=== PATIENT | female | born 1945 | race Caucasian/White ===

== ENCOUNTER 2022-05-24 16:38 | Emergency (ER) | payer OTHER ==
--- OUTSIDE RECORDS SUMMARY | 2022-05-24 16:40 | XMS REPORT | Continuity of Care Document ---
:1945 Author Organization [facility] t Address [address] [place] [address] Care Team Providers Name Role Phone Radha Ann Attending Clinician Unavailable Problems This patient has no known problems. Allergies, Adverse Reactions, Alerts Allergy Allergy Status Severity Reaction(s) Onset Inactive Treating Comm ents Source Name Type Date Date Clinician LISINOPR Adverse Active Info Not Commo n [place] [facility] Ordered Filled Start Stop Current Ordering Indication Dosage Frequency Signature Comments Components Source Medication Medication Date Date Medication? Clinician (SIG) Name Name Potassium Potassium Yes Raul 1 capsule Common Chloride Chloride García with food S pirit [facility] Singulair Singulair Yes Raul 1 tablet Common García in the [facility] evening [facility] Lexapro Lexapro Yes Raul 1 tablet Com mon García [facility] Lipitor Lipitor Yes Raul 1 tablet Com mon García [facility] Flonase Flonase Yes Raul 2 spray in C ommon García each [facility] nostril [facility] Ventolin Ventolin Yes Raul 2 puffs as Common HFA HFA García needed [facility] Norvasc Norvasc Yes Raul 1 tablet Com mon García [facility] Prolia Prolia 2018- No Raul as Common 03-12 García directed Spirit 00:00 - [facility] :00 [facility] Immunizations Ordered Immunization Filled Immunization Date Status Commen ts Source Name Name FluAD FluAD 2019-09-13 Completed Common [facility] 00:00:00 [facility] Procedures This patient has no known procedures. Encounters Start End Encounter Admission Attending Care Care Encounter Source Date/Time Date/Time Type Type Clinicians Facility Department ID 2021-12-25 Outpatient Ann, Na STLMLC STLMLC [id number] 2 Common 14:34:31 [facility] 2021-12-25 Outpatient Ann, Na STLMLC STLMLC [id number] 2 Common 14:13:23 [facility] 2021-12-25 Outpatient Ann, Na STLMLC STLMLC [id number] 2 Common 14:12:30 [id number] [facility] 2021-12-25 Outpatient Ann, Na STLMLC STLMLC [id number] 2 Common 13:58:52 [id number] [facility] 2021-12-25 Outpatient Ann, Na STLMLC STLMLC [id number] 2 Common 13:48:25 [id number] [facility] 2021-12-25 Outpatient Ann, Na STLMLC STLMLC [id number] 2 Common 13:43:09 [id number] [facility] 2021-12-25 Outpatient Ann, Na STLMLC STLMLC [id number] 2 Common 13:24:05 [id number] [facility] 2021-12-25 Outpatient Ann, Na STLMLC STLMLC [id number] 2 Common 13:01:57 [id number] [facility] 2021-12-25 Outpatient Ann, Na STLMLC STLMLC [id number] 2 Common 12:49:54 [id number] [facility] 2021-12-25 Outpatient Ann, Na STLMLC STLMLC [id number] 2 Common 12:19:51 [id number] [facility] 2021-12-25 Outpatient Ann, Na STLMLC STLMLC [id number] 2 Common 11:54:36 [id number] [facility] 2021-12-25 Outpatient Ann, Na STLMLC STLMLC [id number] 2 Common 11:54:19 [id number] [facility] 2021-12-25 Outpatient Ann, Na STLMLC STLMLC [id number] 2 Common 11:31:00 [id number] [facility] 2021-12-25 Outpatient Ann, Na STLMLC STLMLC [id number] 2 Common 11:30:22 [id number] [facility] 2021-12-25 Outpatient Ann, Na STLMLC STLMLC [id number] 2 Common 11:17:41 [id number] [facility] 2021-12-25 Outpatient Ann, Na STLMLC STLMLC [id number] 2 Common 11:17:09 [id number] [facility] 2022-03-20 2022-03-20 ambulatory STLMLC STLMLC [id number] Common 00:00:00 00:00:00 [facility] 2022-03-20 2022-03-20 ambulatory STLMLC STLMLC [id number] Common 00:00:00 00:00:00 [facility] 2022-02-17 2022-02-17 ambulatory STLMLC STLMLC [id number] Common 00:00:00 00:00:00 [facility] 2021-12-13 2021-12-13 ambulatory STLMLC STLMLC [id number] Common 00:00:00 00:00:00 [facility] 2021-10-11 2021-10-11 ambulatory STLMLC STLMLC [id number] Common 00:00:00 00:00:00 [facility] 2021-10-11 2021-10-11 ambulatory STLMLC STLMLC [id number] Common 00:00:00 00:00:00 [facility] 2021-09-19 2021-09-19 ambulatory STLMLC STLMLC [id number] Common 00:00:00 00:00:00 [facility] 2021-09-10 2021-09-10 Outpatient STLMLC STLMLC [id number] Common 00:00:00 00:00:00 [facility] 2021-07-292021-07-29 Outpatient STLMLC STLMLC [id number] Common 00:00:00 00:00:00 [facility] 2021-07-22 2021-07-22 Outpatient STLMLC STLMLC [id number] Common 00:00:00 00:00:00 [facility] 2021-06-10 2021-06-10 Outpatient STLMLC STLMLC [id number] Common 00:00:00 00:00:00 [facility] 2021-05-08 2021-05-08 Outpatient STLMLC STLMLC [id number] Common 00:00:00 00:00:00 [facility] 2021-04-10 2021-04-10 Outpatient STLMLC STLMLC [id number] Common 00:00:00 00:00:00 [facility] 2021-04-10 2021-04-10 Outpatient STLMLC STLMLC [id number] Common 00:00:00 00:00:00 [facility] 2021-03-11 2021-03-11 Outpatient STLMLC STLMLC [id number] Common 00:00:00 00:00:00 [facility] 2020-12-11 2020-12-11 Outpatient STLMLC STLMLC [id number] Common 00:00:00 00:00:00 [facility] 2020-09-11 2020-09-11 Outpatient STLMLC STLMLC [id number] Common 00:00:00 00:00:00 [facility] 2020-08-21 2020-08-21 Outpatient STLMLC STLMLC [id number] Common 00:00:00 00:00:00 [facility] 2020-07-12 2020-07-12 [id number] Common 09:00:00 09:00:00 [employer] [address] [facility] 2020-06-13 2020-06-13 [facility] [id number] Common 11:00:00 11:00:00 [employer] [address] [facility] 2020-06-05 2020-06-05 [facility] [id number] Common 08:30:00 08:30:[address] [facility] 2020-06-04 2020-06-04 [facility] [id number] Common 16:52:00 16:52:[address] [facility] 2020-03-14 2020-03-14 [facility] [id number] Common 08:20:00 08:20:[address] [facility] 2020-03-05 2020-03-05 [facility] [id number] Common 17:01:00 17:01:[address] [facility] 2020-01-25 2020-01-25 [facility] [id number] Common 14:10:00 14:10:[address] [facility] 2019-12-14 2019-12-14 [facility] [id number] Common 10:00:00 10:00:[address] [facility] 2019-12-06 2019-12-06 [facility] [id number] Common 16:58:00 16:58:[address] [facility] 2019-09-13 2019-09-13 [facility] [id number] Common 09:20:00 09:20:[address] [facility] 2019-06-10 2019-06-10 [facility] [id number] Common 09:40:00 09:40:[address] [facility] 2019-03-10 2019-03-10 [facility] [id number] Common 09:00:00 09:00:[address] [facility] 2019-01-05 2019-01-05 [facility] [id number] Common 15:01:00 15:01:00 [address] [employer] [address] [facility] 2018-12-09 2018-12-09 Outpatient Sylvia Wardt [id number] Common 08:45:00 08:45:00 [address] [employer] [address] [facility] Results This patient has no known results.
[2022-05-24 17:20] LABS: Urine Blood Trace-intact (Negative); Urine Glucose Negative (Negative); Urine Protein 1+ (Negative); Urine Specific Gravity >=1.030 (1.005-1.030)
[2022-05-24 17:21] LABS: Absolute Lymphocytes (CBC) 1.9 K/uL (0.7-4.9); Hematocrit 39.6 % (36.0-45.0); Lymphocytes % 30.4 % (15.3-44.8); MPV 7.5 fL (7.6-11.3); RBC Red Blood Cell Count 4.15 M/uL (3.86-4.86)
[2022-05-24] MEDS ORDERED: NA CHLORIDE 0.9% 1,000 ML ONE (17:24)
[2022-05-24] MEDS ORDERED: ONDANSETRON 4 MG/2 ML VIAL ONE (17:24)
[2022-05-24] MEDS ORDERED: MORPHINE 4 MG/ML SYR ONE (17:24)
[2022-05-24 17:55] LABS: Urine Bacteria <20 /HPF (<20); Urine RBC <5 /HPF (NONE SEEN)
[2022-05-24 18:10] LABS: Albumin 3.8 g/dL (3.4-5.0); Bilirubin Total 0.8 mg/dL (0.2-1.0); Protein, Total 7.3 g/dL (6.4-8.2)
[2022-05-24 18:13] LABS: Potassium 2.9 mmol/L (3.5-5.1)
--- NOTE | 2022-05-24 18:43 | RAD REPORT ---
EXAM DESCRIPTION: CTAbdomen Pelvis W Contrast - 05/24/2022 6:29 pm CLINICAL HISTORY: RLQ pain COMPARISON: No comparisons TECHNIQUE: CT of the abdomen and pelvis was performed with IV contrast. All CT scans are performed using dose optimization technique as appropriate and may include automated exposure control or mA/KV adjustment according to patient size. FINDINGS: Lower chest: Moderate hiatal hernia. There is likely a slipped fundoplication . Unchanged 14 mm pleural based nodule in the medial aspect of the left lower lobe. Liver: Intra hepatic biliary ductal dilatation. Subcentimeter low-density liver lesions are statistic ally benign. Biliary: Cholecystectomy. Extrahepatic biliary duct dilatation is likely related to the postcholecyst ectomy state. Stomach: No significant focal abnormality. Duodenum: No significant focal abnormality. Pancreas: No significant abnormality. Spleen: No significant abnormality. Adrenal: No suspicious lesions. Kidney/ureter: No hydronephrosis. No renal calculi. Retroperitoneum: No retroperitoneal adenopathy. Vascular: No aneurysm. Bowel: No significant focal abnormality. Diverticulosis. No evidence of acute diverticulitis. No appe ndix identified. No secondary signs of acute appendicitis. Peritoneum: No ascites or free air. Right inguinal hernia repair. Bladder: Grossly unremarkable. Reproductive: No adnexal masses. Bones: Remote appearing T12 compression fracture with approximately 60% loss of height anteriorly. No significant bony retropulsion. Probable hemangioma in T11. Other: n/a IMPRESSION: No acute intra-abdominal or pelvic finding. Incidental findings as noted above.
--- NOTE | 2022-05-24 19:12 | ER ---
Nurse's Notes [facility] Name: Fior Penn Age: 76 yrs Sex: Female : 1945 Arrival Date: 05/24/2022 Time: 16:41 Bed 19 Private MD: Cat Ann Diagnosis: Abdominal pain, unspecified;Constipation Presentation: 05/24 16:43 Chief complaint: Patient states: Last night I began vomiting. RLQ pain. Constipation X ld1 3 weeks on and off. Coronavirus screen: At this time, the client does not indicate any symptoms associated with coronavirus-19. Ebola Screen: No symptoms or risks identified at this time. Initial Sepsis Screen: Does the patient meet any 2 criteria? No. Patient's initial sepsis screen is negative. Does the patient have a suspected source of infection? No. Patient's initial sepsis screen is negative. Risk Assessment: Do you want to hurt yourself or someone else? Patient reports no desire to harm self or others. Onset of symptoms was May 24, 2022. 16:43 Method Of Arrival: Ambulatory ld1 16:43 Acuity: ANTOINETTE 3 ld1 Triage Assessment: 16:46 General: Appears in no apparent distress. comfortable, Behavior is calm, cooperative, ld1 appropriate for age. Pain: Complains of pain in right lower quadrant Pain does not radiate. Pain currently is 8 out of 10 on a pain scale. Quality of pain is described as throbbing. EENT: No signs and/or symptoms were reported regarding the EENT system. Neuro: Level of Consciousness is awake, alert, obeys commands, Oriented to person, place, time, situation. Cardiovascular: Capillary refill < 3 seconds Patient's skin is warm and dry. Respiratory: Airway is patent Respiratory effort is. GI: Abdomen is round non-distended, Reports lower abdominal pain, constipation, nausea, vomiting. : No signs and/or symptoms were reported regarding the genitourinary system. Derm: No signs and/or symptoms reported regarding the dermatologic system. Musculoskeletal: No signs and/or symptoms reported regarding the musculoskeletal system. Historical: - Allergies: 16:45 Bactrim; ld1 - Home Meds: 16:45 amlodipine 2.5 mg tab 1 tab once daily [Active]; atorvastatin 10 mg oral tab 1 tab once ld1 daily [Active]; escitalopram oxalate 20 mg oral tab 1 tab once daily [Active]; - PMHx: 16:45 Hypertensive disorder; Hypercholesterolemia; ld1 - PSHx: 16:46 Cholecystectomy; ld1 - Immunization history:: Adult Immunizations up to date, Client reports receiving the 2nd dose of the Covid vaccine. - Social history:: Smoking status: Patient/guardian denies using tobacco, the patient reports quitting approximately 20 years ago, Patient/guardian denies using alcohol. Screenin:36 Abuse screen: Denies threats or abuse. Denies injuries from another. Nutritional ww screening: No deficits noted. Tuberculosis screening: No symptoms or risk factors identified. Fall Risk None identified. Assessment: 17:05 General: Appears in no apparent distress. comfortable, Behavior is calm, cooperative. ww Pain: Complains of pain in abdomen. Neuro: Level of Consciousness is awake, alert, obeys commands, Oriented to person, place, time, situation, Moves all extremities. Speech is normal. Cardiovascular: Capillary refill < 3 seconds Patient's skin is warm and dry. Chest pain is denied. Respiratory: Airway is patent Respiratory effort is even, unlabored, Respiratory pattern is regular, symmetrical. GI: Abdomen is round Reports lower abdominal pain, upper abdominal pain, constipation, nausea, vomiting. Derm: No signs and/or symptoms reported regarding the dermatologic system. Musculoskeletal: No signs and/or symptoms reported regarding the musculoskeletal system. 18:36 Reassessment: Patient appears in no apparent distress at this time. No changes from ww previously documented assessment. Patient and/or family updated on plan of care and expected duration. Pain level reassessed. Patient is alert, oriented x 3, equal unlabored respirations, skin warm/dry/pink. 19:34 Reassessment: No changes from previously documented assessment. Patient and/or family ll3 updated on plan of care and expected duration. Pain level reassessed. Patient is alert, oriented x 3, equal unlabored respirations, skin warm/dry/pink. Vital Signs: 16:43 Pulse 89; Resp 18; Temp 98.4(TE); Pulse Ox 98% on R/A; Weight 77.11 kg; Height 5 ft. 0 ld1 in. (152.40 cm); Pain 6/10; 17:15 BP 164 / 81; Pulse 65; Resp 18; Pulse Ox 96% ; ww 18:37 BP 165 / 84; Pulse 78; Resp 16; Pulse Ox 97% ; ww 19:34 BP 148 / 74; Pulse 67; Resp 17; Pulse Ox 96% on R/A; ll3 16:43 Body Mass Index 33.20 (77.11 kg, 152.40 cm) ld1 ED Course: 16:41 Patient arrived in ED. am2 16:41 Cat Ann MD is Private Physician. am2 16:43 [facility] j[facility] 16:43 Andrea Velazquez MD is Attending Physician. 7 16:45 Triage completed. ld1 16:46 Arm band placed on right wrist. ld1 17:06 Leida Sharif RN is Primary Nurse. ww 17:09 Initial lab(s) drawn, by wv, sent to lab. Inserted saline lock: 20 gauge in right dh3 antecubital area, using aseptic technique. Blood collected. 17:20 Urine collected: clean catch specimen, clear. dh3 18:30 Abdomen In Process Unspecified. EDMS 18:37 Patient has correct armband on for positive identification. Bed in low position. Call ww light in reach. Side rails up X 1. Pulse ox on. NIBP on. 19:11 Cat Ann MD is Referral Physician. [facility] 19:14 Primary Nurse role handed off by Leida Sharif, RN mw2 19:33 No provider procedures requiring assistance completed. IV discontinued, intact, ll3 bleeding controlled, No redness/swelling at site. Pressure dressing applied. Administered Medications: 17:20 Drug: NS 0.9% 1000 ml Route: IV; Rate: 1 bolus; Site: right antecubital; ww 17:21 Drug: morphine 4 mg Route: IVP; Infused Over: 4 mins; Site: right antecubital; ww 17:27 Drug: Zofran (Ondansetron) 4 mg Route: IVP; Site: right antecubital; ww 19:28 Drug: Potassium Effervescent Tablet 50 mEq Route: PO; 3 19:33 Follow up: Response: Medication administered at discharge. ll3 Medication: 19:33 VIS not applicable for this client. ll3 Outcome: 19:12 Discharge ordered by . [facility] 19:33 Discharged to home ambulatory, with family. 3 19:33 Condition: stable 19:33 Discharge instructions given to patient, family, Instructed on discharge instructions, follow up and referral plans. medication usage, Demonstrated understanding of instructions, follow-up care, medications, Prescriptions given X 1. 19:34 Patient left the ED. ll3 Signatures: Dispatcher [employer] EDMS Allie Sharma 2 Demetria Powell 3 Federico Orlando 2 Yuliet Donovan RN RN ld1 Verónica Aponte RN RN ll3 Leida Sharif RN RN Calli Sin FNP SETTER HELPER 7 Corrections: (The following items were deleted from the chart) 16:48 16:43 Chief complaint: Patient states: Last night I began vomiting. RLQ pain. ld1 ld1
--- NOTE | 2022-05-24 19:13 | EDPHYS ---
Physician Documentation [facility] Name: Fior Penn Age: 76 yrs Sex: Female : 1945 Arrival Date: 05/24/2022 Time: 16:41 Bed 19 Private MD: Cat Ann ED Physician Andrea Velazquez HPI: 05/24 16:50 This 76 yrs old Female presents to ER via Ambulatory with complaints of Abdominal Pain jh7 - RLQ. 16:50 The patient presents with abdominal pain right lower quadrant. Onset: The jh7 symptoms/episode began/occurred 3 week(s) ago, and became worse this morning. Associated signs and symptoms: Pertinent positives: nausea and vomiting, constipation, Pertinent negatives: diarrhea. Patient reports intermittent right lower quadrant pain starting 3 weeks ago. States her last bowel movement was 3 weeks ago. Reports that she vomited this morning, and the pain worsened. History of cholecystectomy and colitis.. Historical: - Allergies: 16:45 Bactrim; ld1 - Home Meds: 16:45 amlodipine 2.5 mg tab 1 tab once daily [Active]; atorvastatin 10 mg oral tab 1 tab once ld1 daily [Active]; escitalopram oxalate 20 mg oral tab 1 tab once daily [Active]; - PMHx: 16:45 Hypertensive disorder; Hypercholesterolemia; ld1 - PSHx: 16:46 Cholecystectomy; ld1 - Immunization history:: Adult Immunizations up to date, Client reports receiving the 2nd dose of the Covid vaccine. - Social history:: Smoking status: Patient/guardian denies using tobacco, the patient reports quitting approximately 20 years ago, Patient/guardian denies using alcohol. ROS: 16:50 Constitutional: Negative for fever, chills, and weight loss, Eyes: Negative for injury, jh7 pain, redness, and discharge, ENT: Negative for injury, pain, and discharge, Neck: Negative for injury, pain, and swelling, Cardiovascular: Negative for chest pain, palpitations, and edema, Respiratory: Negative for shortness of breath, cough, wheezing, and pleuritic chest pain, Back: Negative for injury and pain, Skin: Negative for injury, rash, and discoloration, Neuro: Negative for headache, weakness, numbness, tingling, and seizure. 16:50 Abdomen/GI: Positive for abdominal pain, nausea and vomiting, constipation, Negative for diarrhea. 16:50 All other systems are negative. Exam: 16:50 Eyes: Pupils equal round and reactive to light, extra-ocular motions intact. Lids and jh7 lashes normal. Conjunctiva and sclera are non-icteric and not injected. Cornea within normal limits. Periorbital areas with no swelling, redness, or edema. Neck: Trachea midline, no thyromegaly or masses palpated, and no cervical lymphadenopathy. Supple, full range of motion without nuchal rigidity, or vertebral point tenderness. No Meningismus. Cardiovascular: Regular rate and rhythm with a normal S1 and S2. No gallops, murmurs, or rubs. Normal PMI, no JVD. No pulse deficits. Respiratory: Lungs have equal breath sounds bilaterally, clear to auscultation and percussion. No rales, rhonchi or wheezes noted. No increased work of breathing, no retractions or nasal flaring. Back: No spinal tenderness. No costovertebral tenderness. Full range of motion. Skin: Warm, dry with normal turgor. Normal color with no rashes, no lesions, and no evidence of cellulitis. MS/ Extremity: Pulses equal, no cyanosis. Neurovascular intact. Full, normal range of motion. Neuro: Awake and alert, GCS 15, oriented to person, place, time, and situation. Motor strength 5/5 in all extremities. Sensory grossly intact. Normal gait. 16:50 Constitutional: The patient appears alert, awake, in obvious pain. 16:50 Abdomen/GI: Inspection: abdomen appears normal, Bowel sounds: normal, Palpation: moderate abdominal tenderness, in the right lower quadrant, Indicators: McBurney's point is tender. Vital Signs: 16:43 Pulse 89; Resp 18; Temp 98.4(TE); Pulse Ox 98% on R/A; Weight 77.11 kg; Height 5 ft. 0 ld1 in. (152.40 cm); Pain 6/10; 17:15 BP 164 / 81; Pulse 65; Resp 18; Pulse Ox 96% ; ww 18:37 BP 165 / 84; Pulse 78; Resp 16; Pulse Ox 97% ; ww 19:34 BP 148 / 74; Pulse 67; Resp 17; Pulse Ox 96% on R/A; ll3 16:43 Body Mass Index 33.20 (77.11 kg, 152.40 cm) ld1 MDM: 16:52 Patient medically screened. [facility] 19:40 Differential diagnosis: appendicitis, diverticulitis, urinary tract infection, jh7 Constipation. 19:40 Data reviewed: vital signs, nurses notes, lab test result(s), radiologic studies, CT [facility] scan. Data interpreted: Pulse oximetry: is 96 %. Interpretation: normal. Counseling: I had a detailed discussion with the patient and/or guardian regarding: the historical points, exam findings, and any diagnostic results supporting the discharge/admit diagnosis, to return to the emergency department if symptoms worsen or persist or if there are any questions or concerns that arise at home. Response to treatment: the patient's symptoms have resolved after treatment, the patient's pain is gone. ED course: Reviewed the patient's lab work and CT scan results. Her pain resolved after pain medication administration. Gave her potassium in the ER to correct her hypokalemia. She was advised to increase her fluid intake and take stool softeners at home for her constipation. If her symptoms worsen, or any new concerning symptoms develop, she may return to the ER for further eval.. 05/24 16:57 Order name: CBC with Diff; Complete Time: 17:28 [facility] 05/24 16:57 Order name: CMP; Complete Time: 18:39 [facility] 05/24 16:57 Order name: Lipase; Complete Time: 18:39 [facility] 05/24 16:57 Order name: Urine Microscopic Only; Complete Time: 18:12 [facility] 05/24 16:57 Order name: CT Abd/Pelvis - IV Contrast Only [facility] 05/24 17:21 Order name: Urine Dipstick-Ancillary; Complete Time: 17:23 EDMS 05/24 16:57 Order name: IV Saline Lock; Complete Time: 17:12 [facility] 05/24 16:57 Order name: Labs collected and sent; Complete Time: 17:13 [facility] 05/24 16:57 Order name: Urine Dipstick-Ancillary (obtain specimen); Complete Time: 17:20 [facility] 05/24 17:01 Order name: Abdomen ; Complete Time: 18:57 EDMS Administered Medications: 17:20 Drug: NS 0.9% 1000 ml Route: IV; Rate: 1 bolus; Site: right antecubital; ww 17:21 Drug: morphine 4 mg Route: IVP; Infused Over: 4 mins; Site: right antecubital; ww 17:27 Drug: Zofran (Ondansetron) 4 mg Route: IVP; Site: right antecubital; ww 19:28 Drug: Potassium Effervescent Tablet 50 mEq Route: PO; ll3 19:33 Follow up: Response: Medication administered at discharge. 3 Disposition: 05/25 18:01 Co-signature as Attending Physician, Andrea Velazquez MD. ma2 Disposition Summary: 05/24/22 19:12 Discharge Ordered Location: Home [facility] Problem: new [facility] Symptoms: have improved [facility] Condition: Stable [facility] Diagnosis - Abdominal pain, unspecified [facility] - Constipation [facility] Followup: [facility] - With: Cat Ann MD - When: 2 - 3 days - Reason: Recheck today's complaints Discharge Instructions: - Discharge Summary Sheet 7 - Abdominal Pain, Adult jh7 - Constipation, Adult jh7 Forms: - Medication Reconciliation Form 7 - Thank You Letter [facility] Prescriptions: - Colace 100 mg Oral Tablet - take 1 tablet by ORAL route every 12 hours; 14 tablet; Refills: 0, Product 7 Selection Permitted Signatures: Dispatcher [employer] EDAndrea Hernandez MD MD ma2 Yuliet Donovan RN RN [email or web address] Verónica Aponte RN RN ll3 Leida Sharif RN RN Calli Sin FNP [employer] [facility]
[2022-05-24] MEDS ORDERED: POTASSIUM 25 MEQ EFFERV TAB ONE (19:30)
[2022-05-24 20:15] VITALS: TEMP 98.4
[2022-05-24 20:19] VITALS: BP 148/74; O2SAT 96
== END 2022-05-24 19:34 | disposition home or self-care (01) ==
LOC: ER 16:38
DX: K59.00 Constipation, unspecified (principal); I10 Essential (primary) hypertension; E78.00 Pure hypercholesterolemia, unspecified; Z88.1 Allergy status to other antibiotic agents
CPT/HCPCS: 85025; 36415; 83690; 80053; 74177; 96375; 96374; 99284; Q9967; J7030; J2405; 81003; 81015